=== PATIENT | female | born 1995 | race Caucasian/White ===

== ENCOUNTER 2016-11-21 05:08 | Inpatient (IN) ==
[2016-11-21] MEDS ORDERED: REGLAN PO ONE (05:12)
[2016-11-21] MEDS ORDERED: PITOCIN 30 UNITS/LR 30 UNITS/500 ML IV.SOLN IV SCH (05:12)
[2016-11-21] MEDS ORDERED: LR 500 ML IV ONE (05:12)
[2016-11-21] MEDS ORDERED: PEPCID PO ONE (05:12)
[2016-11-21] MEDS ORDERED: PEPCID PO PRN (05:12)
[2016-11-21] MEDS ORDERED: ZOFRAN IV PRN (05:12)
[2016-11-21] MEDS ORDERED: STADOL IV PRN (05:12)
[2016-11-21] MEDS ORDERED: PEPCID IV PRN (05:12)
[2016-11-21] MEDS ORDERED: TYLENOL PO PRN (05:12)
[2016-11-21] MEDS ORDERED: KEFZOL 1 GM/D5W 1 GM/50 ML IVPB IV PRN (05:12)
[2016-11-21] MEDS ORDERED: SODIUM CHLORIDE 0.9% INJ SCH (05:15)
[2016-11-21] MEDS: LR 1,000 ML IV SCH ×3 (06:15→17:12)
[2016-11-21 07:58] LABS: URINE SOURCE VOIDED
[2016-11-21 07:58] LABS: MANUAL DIFF NEEDED? NO
[2016-11-21 08:12] LABS: BILIRUBIN URINE NEGATIVE (NEGATIVE); BLOOD URINE NEGATIVE (NEGATIVE); CLARITY CLEAR (CLEAR); COLOR YELLOW; GLUCOSE URINE NEGATIVE (NEGATIVE); LEUKOCYTES URINE TRACE (NEGATIVE); NITRITE URINE NEGATIVE (NEGATIVE); PROTEIN URINE TRACE mg/dL (NEGATIVE); UROBILINOGEN URINE NORMAL
[2016-11-21 08:17] LABS: BASO% 0.2 % (0.0-0.8); HEMATOCRIT 33.9 % (37.0-47.0); HEMOGLOBIN 12.1 g/dL (12.0-16.0); IMM GRAN# 0.04 X1000 (0.0-0.04); IMM GRAN% 0.4 % (0.0-0.5); LYMPH# 2.44 X1000 (1.2-3.4); LYMPH% 25.4 % (20.5-51.1); MCH 32.6 PG (27-31); MCHC 35.7 g/dL (33-37); MCV 91.4 FL (81-99); MONO# 0.94 X1000 (0.11-0.59); MONO% 9.8 % (1.7-9.3); MPV 11.5 FL (7.4-10.4); NEUT% 63.2 % (42.2-75.2); PLT 149 X1000 (130-400); RBC 3.71 XMIL (4.2-5.4)
[2016-11-21] MEDS ORDERED: FENTANYL-BUPIV-NS 2 MCG-0.1% 200 ML EPIDURAL PRN (08:17)
[2016-11-21] MEDS ORDERED: XYLOCAINE-MPF 1% 0 ML ONE (09:34)
[2016-11-21] MEDS ORDERED: XYLOCAINE-MPF 1% ONE (12:20)
[2016-11-21] MEDS ORDERED: XYLOCAINE-MPF 1% INJ PRN (13:08)
[2016-11-21] MEDS ORDERED: PITOCIN 30 UNITS/LR 30 UNITS/500 ML IV.SOLN IV ONE (13:08)
[2016-11-21] MEDS ORDERED: PERI MEDS (DERMOPLAST/NUPERCAINAL/TUCKS) MISC PRN (13:08)
[2016-11-21] MEDS ORDERED: PITOCIN 20 UNITS/LR 20 UNITS/1,000 ML IV.SOLN IV SCH (13:08)
[2016-11-21] MEDS ORDERED: HYDROXYZINE PO PRN (13:08)
[2016-11-21] MEDS ORDERED: CYTOTEC PO PRN (13:08)
[2016-11-21] MEDS ORDERED: PITOCIN IM PRN (13:08)
[2016-11-21] MEDS ORDERED: BOOSTRIX VACCINE IM ONE (13:08)
[2016-11-21] MEDS ORDERED: HYDROXYZINE IM PRN (13:08)
[2016-11-21] MEDS ORDERED: M-M-R II VACCINE SUBQ ONE (13:08)
[2016-11-21] MEDS ORDERED: MINERAL OIL PO PRN (13:08)
[2016-11-21] MEDS ORDERED: AMBIEN PO PRN (13:08)
[2016-11-21] MEDS ORDERED: BENADRYL IV PRN (13:08)
[2016-11-21] MEDS ORDERED: BENADRYL PO PRN (13:08)
[2016-11-21] MEDS: MOTRIN PO PRN (16:34)
[2016-11-21] MEDS: PERCOCET-5 PO PRN ×2 (16:34→20:46)
[2016-11-21] MEDS ORDERED: PERICOLACE PO SCH (21:00)
[2016-11-22] MEDS: MOTRIN PO PRN ×3 (00:42→18:56)
[2016-11-22] MEDS: PERCOCET-5 PO PRN ×4 (00:42→18:56)
[2016-11-22 06:40] LABS: HEMATOCRIT 29.8 % (37.0-47.0); HEMOGLOBIN 10.2 g/dL (12.0-16.0); MCH 31.8 PG (27-31); MCHC 34.2 g/dL (33-37); MCV 92.8 FL (81-99); MPV 11.4 FL (7.4-10.4); RBC 3.21 XMIL (4.2-5.4)
[2016-11-22] MEDS ORDERED: PNEUMOVAX 23 IM ONE (07:04)
[2016-11-23] MEDS: MOTRIN PO PRN (06:01)
[2016-11-23] MEDS: PERCOCET-10 PO PRN ×2 (06:03→13:00)
[2016-11-23 07:56] VITALS: BP 128/78
--- NOTE | 2016-11-23 22:22 | DISCHARGE SUMMARY ---
ADMISSION DATE: 11/21/2016 DISCHARGE DATE: 11/23/2016 PRINCIPAL DIAGNOSIS: Intrauterine at 38+ 0 weeks. SECONDARY DIAGNOSIS: Suspected intrauterine growth retardation. PROCEDURE: Normal spontaneous vaginal delivery. HISTORY OF PRESENT ILLNESS: This is a 21-year-old G1 with IUP who presented 30 weeks for scheduled induction of labor. After having an uneventful labor course, patient delivered normal spontaneous vaginal delivery, viable female at 12:12 on for 11/21/2016, weight 5 pounds 1 ounce. Apgars 10 and 10. After delivery, patient had an uneventful course. Her lochia is less than menses. Her pain is well controlled. She is afebrile and her vital signs were stable. Patient stable for discharge on day #2. CONDITION ON DISCHARGE: Stable. ELIMINATION CAPACITY: Independent. FEEDING CAPACITY: Independent. LOCOMOTION CAPACITY: Independent. REHAB POTENTIAL: Good. PROGNOSIS: Good. DISCHARGE MEDICATIONS: Include Percocet 5/325, 1-2 tabs p.o. q.6 hours p.r.n. pain. DIET: She is to maintain a regular diet. PHYSICAL ACTIVITY: As tolerated. DISCHARGE INSTRUCTIONS: Patient is ordered to call or return if fever greater 100.4, heavy vaginal bleeding, foul smelling vaginal discharge or any other acute changes. The patient will be discharged home with orders to follow up with Dr. Byers in 6 weeks. cc: Miki Byers MD
== END 2016-11-23 13:05 | disposition home or self-care (01) ==
LOC: P.LD 05:08
PROVIDERS: ADMIT Obstetrics & Gynecology; ATTEND Obstetrics & Gynecology